=== PATIENT | male | born 1995 | race Caucasian/White ===

== ENCOUNTER 2021-03-01 14:53 | Inpatient (IN) | payer BC ==
[~2021-03-01] VITALS: Ht 167.6 cm; Wt 62.1 kg
--- NOTE | 2021-03-01 15:44 | NUR ---
RLQ ABDOMINAL PAIN W NAUSEA AND VOMITING STARTED 0600. SENT [facility] TO R/O APPENDICITIS. RATES ABDOMINAL PAIN 08/18. ABDOMNE SOFT AND NON-DISTENDED. IN ROOM AIR AND DENIES SOB. RESPIRATION REGULAR AND UNLABORED. WILL CONTINUE TO MONITOR THE PATIENT.
[2021-03-01] MEDS ORDERED: ONDANSETRON HCL/PF 4 MG/2 ML VIAL ONE (15:53)
[2021-03-01] MEDS ORDERED: ONDANSETRON HCL/PF 4 MG/2 ML VIAL IVP ONE (16:00)
[2021-03-01] MEDS ORDERED: IV NS 0.9% 1,000 ML BAG IV ONE (16:00)
[2021-03-01 16:02] LABS: BASOPHILS # (AUTO) 0.1 K/uL (0.0-0.2); BASOPHILS % (AUTO) 0.3 % (0.0-2.0); EOSINOPHILS % (AUTO) 0.1 % (0.0-6.0); HEMATOCRIT 46 % (39-51); HEMOGLOBIN 15.4 g/dL (13.5-17.5); LYMPHOCYTES # (AUTO) 0.7 K/uL (0.8-4.8); LYMPHOCYTES % (AUTO) 3.9 % (20.0-44.0); MEAN CORPUSCULAR HGB CONC 33 g/dl (31.0-36.0); MEAN CORPUSCULAR VOLUME 90 fL (80-96); MONOCYTES # (AUTO) 1.3 K/uL (0.1-1.30); MONOCYTES % (AUTO) 7.1 % (2.0-12.0); NEUTROPHILS # (AUTO) 15.8 K/uL (1.8-8.9); NEUTROPHILS % (AUTO) 88.6 % (43.0-81.0); PLATELET COUNT (AUTO) 319 K/uL (150-450); RED BLOOD CELL COUNT(AUTO) 5.14 MIL/uL (4.5-6.0); WHITE BLOOD COUNT (AUTO) 17.8 K/uL (4.3-11.0)
--- NOTE | 2021-03-01 16:02 | NUR ---
THE PATIENT IS TAKEN TO CT
[2021-03-01 16:08] LABS: ALBUMIN 4.5 g/dL (3.4-5.0); BILIRUBIN,DIRECT 0.2 mg/dL (0.0-0.2); BILIRUBIN,TOTAL 0.9 mg/dL (0.2-1.0); CALCIUM, SERUM 9.2 mg/dL (8.5-10.1); CREATININE 0.9 mg/dL (0.6-1.3); POTASSIUM 4.3 mmol/L (3.5-5.1); TOTAL PROTEIN, SERUM 8.2 g/dL (6.4-8.2)
--- NOTE | 2021-03-01 16:13 | NUR ---
THE PATIENT IS BACK FROM CT
--- NOTE | 2021-03-01 16:32 | NUR ---
URINE SENT TO LAB
[2021-03-01 16:51] LABS: BILIRUBIN,URINE Negative (NEGATIVE); COLOR,URINE YELLOW (YELLOW); LEUKOCYTE ESTERASE ,URINE Negative (NEGATIVE); NITRITE, URINE Negative (NEGATIVE); PROTEIN,URINE Trace mg/dl (NEGATIVE); UGLUCOSE Negative (NEGATIVE); UROBILINOGEN,URINE 0.2 EU/dL (0.2)
[2021-03-01 16:52] LABS: PH,URINE >8.5 (5.0-8.0)
[2021-03-01 16:53] LABS: BACTERIA,URINE Rare /HPF (None Seen); RBC,URINE NONE SEEN /HPF (0-2); SQUAMOUS EPITHELIAL CELL,UR Few /HPF (None Seen); WBC,URINE NONE SEEN /HPF (0-3)
--- NOTE | 2021-03-01 17:04 | NUR ---
THE PATIENT DENIES HAVING ANY DISTRESS AT THIS TIME. BREATHING EVEN AND UNLABORED. WILL CONTINUE TO MONITOR THE PATIENT.
--- NOTE | 2021-03-01 17:28 | NUR ---
CALLED DR. SEGOVIA LEFT MSG.
[2021-03-01] MEDS ORDERED: IV NS 0.9% 1,000 ML IV ONE (17:30)
[2021-03-01] MEDS ORDERED: PIPERACILLIN /TAZOBACTAM 3.375 G in IV D5W 50 ML IV ONE (17:30)
--- NOTE | 2021-03-01 18:10 | NUR ---
COVID SWAB DONE AND SENT TO THE LAB
[2021-03-01] MEDS ORDERED: ONDANSETRON HCL/PF 4 MG/2 ML VIAL IVP PRN (18:30)
[2021-03-01] MEDS ORDERED: IV NS 0.9% 1,000 ML IV PRN (18:30)
[2021-03-01] MEDS ORDERED: ZOLPIDEM TARTRATE 5 MG TABLET PO PRN (18:30)
[2021-03-01] MEDS ORDERED: MAG HYDROX/AL HYDROX/SIMETH 30 ML UDC PO PRN (18:30)
[2021-03-01] MEDS ORDERED: MAGNESIUM HYDROXIDE 30 ML UDC PO PRN (18:30)
[2021-03-01] MEDS ORDERED: Z GUARD REMEDY 2 OZ OINT TP PRN (18:30)
[2021-03-01] MEDS ORDERED: HYDROMORPHONE INJ 2 MG/ML DISP.SYRIN IV PRN (18:30)
[2021-03-01] MEDS ORDERED: ACETAMINOPHEN 325 MG TABLET PO PRN (18:30)
[2021-03-01] MEDS ORDERED: CEFAZOLIN 1 GM VIAL IV ONE (19:00)
--- NOTE | 2021-03-01 19:13 | NUR ---
ROOM 329
[2021-03-01] MEDS ORDERED: FENTANYL PF 250MCG/5ML AMPUL ONE (19:18)
--- NOTE | 2021-03-01 19:18 | NUR ---
REPORT GIVEN TO NURSE JUAN LUIS FOR WILLIE
[2021-03-01] MEDS ORDERED: ROCURONIUM BROMIDE 50 MG/5 ML ONE (19:19)
[2021-03-01] MEDS ORDERED: MIDAZOLAM HCL 2 MG/2ML VIAL ONE (19:19)
[2021-03-01] MEDS ORDERED: HYDROMORPHONE INJ 2 MG/ML DISP.SYRIN ONE (19:19)
--- NOTE | 2021-03-01 19:22 | NUR ---
REPORT GIVEN TO NURSE BLANCO
[2021-03-01] MEDS ORDERED: LIDOCAINE /MPF 1% VIAL 5 ML VIAL ONE (19:32)
[2021-03-01] MEDS ORDERED: LIDOCAINE HCL/PF 1% 30 ML SDV ONE (19:32)
[2021-03-01] MEDS ORDERED: BUPIVACAINE MPF 0.5% W/EPI INJ 30 ML VIAL ONE (19:32)
--- NOTE | 2021-03-01 19:36 | NUR ---
PATIENT TAKEN TO OR, VSS.
[2021-03-01] MEDS ORDERED: BACITRACIN ZINC OINT PACKET 1 EA PACKET TP ONE (20:46)
[2021-03-01 21:57] VITALS: BP 130/67
--- NOTE | 2021-03-01 22:00 | NUR ---
ACADEMIC ADVISING DIRECTOR NOTE RECEIVED PT FROM O.R. TO RM. 329-2 BROUGHT IN BY RN, CAROLYN. PT AWAKE/ DROWSY, VERBAL, A/OX4. ABLE TO VERBALIZE NEEDS. DENIES PAIN AT THIS TIME. RESPIRATIONS EVEN/UNLABORED. PT IS S/P LAP APPENDECTOMY WITH DRESSING TO ABD INCISION SITE C/D/I. IV SITE ON L-AC #18G INTACT/PATENT/FLUSHES WELL. HEALTH/MED TEACHINGS PROVIDED AND PT VERBALIZED UNDERSTANDING. BELONGINGS CHECKED AND RECORDED. PT IN NO ACUTE DISTRESS. SAFETY MEASURES IN PLACE, BED IN LOWEST LOCKED POSITION, S/R UP X2, CALL LIGHT WITHIN REACH. WILL CONT TO MONITOR.
[2021-03-01] MEDS: IV LR 1000 ML 1,000 ML IV PRN (22:52)
[2021-03-01] MEDS ORDERED: HYDROCODONE/APAP 10/325MG TABLET PO PRN (23:00)
[2021-03-01] MEDS: PIPERACILLIN /TAZOBACTAM 3.375 G in IV D5W 50 ML IV SCH (23:32)
[2021-03-02] MEDS: HYDROMORPHONE 1 MG/1 ML DISP.SYRIN IV PRN ×4 (01:12→22:01)
[2021-03-02] MEDS: PIPERACILLIN /TAZOBACTAM 3.375 G in IV D5W 50 ML IV SCH ×4 (05:46→23:15)
[2021-03-02] MEDS: IV LR 1000 ML 1,000 ML IV PRN ×2 (06:30→15:37)
--- NOTE | 2021-03-02 06:56 | NUR ---
MS RN CLOSING NOTE PT RESTING IN BED, EASILY AROUSABLE TO STIMULI. ABLE TO VERBALIZE ALL NEEDS. PT SLEPT WELL THIS SHIFT. PAIN WELL MANAGED WITH PRN DILAUDID. IV SITE: L-AC INTACT/PATENT, RUNNING LR @125ML/HR. PT IN NO ACUTE DISTRESS. SAFETY MEASURES IN PLACE, BED IN LOWEST LOCKED POSITION, S/R UPX2, CALL LIGHT WITHIN REACH.
[2021-03-02 07:15] LABS: BASOPHILS % (AUTO) 0.1 % (0.0-2.0); EOSINOPHILS % (AUTO) 0.2 % (0.0-6.0); HEMATOCRIT 39 % (39-51); HEMOGLOBIN 13.1 g/dL (13.5-17.5); LYMPHOCYTES % (AUTO) 7.8 % (20.0-44.0); MEAN CORPUSCULAR HGB CONC 33 g/dl (31.0-36.0); MEAN CORPUSCULAR VOLUME 90 fL (80-96); MONOCYTES # (AUTO) 1.2 K/uL (0.1-1.30); MONOCYTES % (AUTO) 9.6 % (2.0-12.0); NEUTROPHILS # (AUTO) 10.3 K/uL (1.8-8.9); NEUTROPHILS % (AUTO) 82.3 % (43.0-81.0); PLATELET COUNT (AUTO) 286 K/uL (150-450); RED BLOOD CELL COUNT(AUTO) 4.36 MIL/uL (4.5-6.0); WHITE BLOOD COUNT (AUTO) 12.6 K/uL (4.3-11.0)
[2021-03-02 07:28] LABS: CALCIUM, SERUM 7.7 mg/dL (8.5-10.1); MAGNESIUM 1.7 mg/dL (1.8-2.4); PHOSPHORUS 4.5 mg/dL (2.5-4.9); POTASSIUM 4.8 mmol/L (3.5-5.1)
--- NOTE | 2021-03-02 07:40 | NUR ---
MS/RN OPENING NOTES RECEIVED PATIENT ON BED AWAKE ALERT AND ORIENTED X4. PATIENT IS ON ROOM AIR. PATIENT IN NO APPARENT RESPIRATORY DISTRESS NOTED. NO COMPLAINED OF PAIN NOTED AT THIS TIME. WILL CONTINUE TO MONITOR.
[2021-03-02 08:00] VITALS: BP 127/65
[2021-03-02] MEDS ORDERED: Magnesium 1GM/D5W 100ML PREMIX 100 ML IV SCH (09:00)
--- NOTE | 2021-03-02 13:44 | NUR ---
RN NOTES PATIENT COMPLAINED OF NAUSEA AND VOMITING, 1X EMESIS. ZOFRAN 4MG IV WAS GIVEN. WILL CONTINUE TO MONITOR.
--- NOTE | 2021-03-02 14:49 | NUR ---
MS/RN NOTES DR. SEGOVIA ORDER PROTONIX 40MG IV DAILY, INSERT SHAH CATHETER AND CBC. NOTED AND CARRIED OUT.
[2021-03-02] MEDS ORDERED: PANTOPRAZOLE 40 MG VIAL IV SCH (15:00)
[2021-03-02] MEDS: PANTOPRAZOLE 40 MG VIAL IV SCH (15:04)
[2021-03-02 16:00] VITALS: BP 116/66
--- NOTE | 2021-03-02 18:39 | NUR ---
MS/RN CLOSING NOTES PATIENT IS AWAKE, ALERT AND ORIENTED X4. PATIENT IS ON ROOM AIR. PATIENT IN NO APPARENT RESPIRATORY DISTRESS NOTED. NO COMPLAINED OF PAIN NOTED AT THIS TIME. IV ACCESS AT LEFT AC #18G WITH IV FLUID OF LR 1L AT 125ML/HOUR ON AND INFUSING WELL. SEEN AND EXAMINED BY MD WITH ORDERS MADE AND CARRIED OUT. ALL DUE MEDICATIONS WAS GIVEN. SAFETY PRECAUTIONS WAS IN PLACED. BED IN LOWEST POSITION AND LOCKED. SIDERAILS UP X2. CALL LIGHT WITHIN REACH. WILL ENDORSED TO ELASTIC TAPE INSERTER FOR WILLIE.
--- NOTE | 2021-03-02 19:42 | NUR ---
Patient is awake, A&Ox4. VSS. States he feels better at this time but reports nausea and vomiting earlier in the day when attempting to get up and walk. Denies pain at this time. Will continue to monitor.
[2021-03-02 20:00] VITALS: BP 135/70
[2021-03-03] MEDS: IV LR 1000 ML 1,000 ML IV PRN ×2 (01:57→22:39)
[2021-03-03] MEDS: HYDROMORPHONE 1 MG/1 ML DISP.SYRIN IV PRN ×3 (03:38→16:31)
[2021-03-03] MEDS: PIPERACILLIN /TAZOBACTAM 3.375 G in IV D5W 50 ML IV SCH ×3 (05:39→17:02)
--- NOTE | 2021-03-03 07:18 | NUR ---
CLOSING NOTES Patient c/o severe pain x2, relieved by PRN dilaudid. Not able to drink anything PO, IV running LR mg429qg/hr. Slept well throughout night thopugh easy to wake. 1900cc output to martinez yellow clear.
[2021-03-03 07:31] LABS: BASOPHILS % (AUTO) 0.4 % (0.0-2.0); EOSINOPHILS % (AUTO) 1.1 % (0.0-6.0); HEMATOCRIT 40 % (39-51); HEMOGLOBIN 13.3 g/dL (13.5-17.5); LYMPHOCYTES # (AUTO) 1.7 K/uL (0.8-4.8); LYMPHOCYTES % (AUTO) 18.3 % (20.0-44.0); MEAN CORPUSCULAR HGB CONC 33 g/dl (31.0-36.0); MEAN CORPUSCULAR VOLUME 91 fL (80-96); MONOCYTES # (AUTO) 0.9 K/uL (0.1-1.30); NEUTROPHILS # (AUTO) 6.5 K/uL (1.8-8.9); NEUTROPHILS % (AUTO) 70.2 % (43.0-81.0); PLATELET COUNT (AUTO) 276 K/uL (150-450); RED BLOOD CELL COUNT(AUTO) 4.41 MIL/uL (4.5-6.0); WHITE BLOOD COUNT (AUTO) 9.3 K/uL (4.3-11.0)
--- NOTE | 2021-03-03 07:57 | NUR ---
RN OPENING NOTE- RECEIVED PATIENT IN BED, AWAKE ALERT AND ORIENTED X4. PATIENT IS ON ROOM AIR. PATIENT IN NO APPARENT RESPIRATORY DISTRESS. ADVANCING CLEAR LIQUID DIET. NO N&V AT PRESENT NO COMPLAINT OF PAIN NOTED AT THIS TIME. WILL CONTINUE TO MONITOR. SIDE RAILS UP , BED LOCKED, CALL LIGHT CLOSE.
[2021-03-03 08:00] VITALS: BP 130/76
[2021-03-03] MEDS: PANTOPRAZOLE 40 MG VIAL IV SCH (08:53)
--- NOTE | 2021-03-03 12:15 | NUR ---
RN NOTE- DR SEGOVIA ORDERED HSAH CATHETER DC. IV SALINE LOCK TO RT ARM LEAKING. REMOVED IV SALINE LOCK AND INSERTED NEW 24G TO RAC. SHAH CATHETER REMOVED AT THIS TIME . TOLERATED WELL.
[2021-03-03 13:27] LABS: ALBUMIN 2.9 g/dL (3.4-5.0); BILIRUBIN,TOTAL 0.8 mg/dL (0.2-1.0); CALCIUM, SERUM 8.1 mg/dL (8.5-10.1); CREATININE 1.3 mg/dL (0.6-1.3); MAGNESIUM 1.8 mg/dL (1.8-2.4); TOTAL PROTEIN, SERUM 6.3 g/dL (6.4-8.2)
[2021-03-03 15:01] LABS: BILIRUBIN,URINE NEGATIVE (NEGATIVE); COLOR,URINE YELLOW (YELLOW); LEUKOCYTE ESTERASE ,URINE SMALL (NEGATIVE); NITRITE, URINE NEGATIVE (NEGATIVE); PH,URINE 5.5 (5.0-8.0); PROTEIN,URINE NEGATIVE (NEGATIVE); UGLUCOSE NEGATIVE (NEGATIVE); UROBILINOGEN,URINE 0.2 EU/dL (0.2)
[2021-03-03 15:12] LABS: CREATININE, URINE 60.1 MG/DL (30.0-125.0); URINE TOTAL PROTEIN 17.5 mg/dL (0-11.9)
[2021-03-03 15:32] LABS: BACTERIA,URINE 1+ /HPF (None Seen); SQUAMOUS EPITHELIAL CELL,UR 0-2 /HPF (None Seen)
[2021-03-03 15:38] LABS: EOSINOPHIL,URINE RARE
--- NOTE | 2021-03-03 18:57 | NUR ---
RN CLOSING NOTE- PATIENT IN BED, AWAKE ALERT AND ORIENTED X4. PATIENT IS ON ROOM AIR. PATIENT IN NO APPARENT RESPIRATORY DISTRESS. ADVANCING CLEAR LIQUID DIET. NO N&V AT PRESENT NO COMPLAINT OF PAIN NOTED AT THIS TIME. SHAH CATHETER DC, PT VOIDING, COMFORTABLE AMBULATING IN ROOM. WILL CONTINUE TO MONITOR. SIDE RAILS UP , BED LOCKED, CALL LIGHT CLOSE.
--- NOTE | 2021-03-03 19:30 | NUR ---
RN OPENING NOTE PATIENT IN BED, AWAKE ON HIS CELL PHONE. PATIENT IS A/O X 4, ABLE TO MAKE NEEDS KNOWN. PATIENT IS S/P APPENDECTOMY. PATIENT DOES NOT HAVE ANY REPORTS OF NAUSEA AT THIS TIME AND NO PAIN. PATIENT HAS A RAC 24 G PATENT AND INTACT RUNNING LR AT 125 CC/HR. PER ARIELLA RN, PATIENT SUPPOSED TO BE ON LR AND NOT NS AND INSTRUCTED BY DR. SEGOVIA TO DC NS. SAFETY MEASURES IN PLACE: BED LOCKED AND IN LOWEST POSITION, CALL LIGHT WITHIN REACH. SIDE RAILS UP. WILL MONITOR PATIENT CLOSELY.
[2021-03-03] MEDS: IBUPROFEN 400 MG TABLET PO SCH (20:32)
[2021-03-03] MEDS: GABAPENTIN 300 MG CAPSULE PO SCH (20:32)
[2021-03-03] MEDS: ACETAMINOPHEN 325 MG TABLET PO SCH (20:33)
[2021-03-03 20:35] VITALS: BP 134/85
[2021-03-04] MEDS: PIPERACILLIN /TAZOBACTAM 3.375 G in IV D5W 50 ML IV SCH ×3 (00:32→12:15)
[2021-03-04] MEDS: ACETAMINOPHEN 325 MG TABLET PO SCH ×2 (05:17→12:15)
[2021-03-04] MEDS: GABAPENTIN 300 MG CAPSULE PO SCH ×2 (05:17→12:15)
[2021-03-04] MEDS: IBUPROFEN 400 MG TABLET PO SCH ×2 (05:17→12:15)
[2021-03-04] MEDS: IV LR 1000 ML 1,000 ML IV PRN (06:09)
--- NOTE | 2021-03-04 06:55 | NUR ---
RN CLOSING NOTE PATIENT IN BED, AWAKE. PATIENT IS A/O X 4, ABLE TO MAKE NEEDS KNOWN. PATIENT IS S/P APPENDECTOMY. PATIENT DOES NOT HAVE ANY REPORTS OF NAUSEA AT THIS TIME AND NO PAIN. PAIN MANAGED WITH TYLENOL, MOTRIN, AND GABAPENTIN. PATIENT HAS A RAC 24 G PATENT AND INTACT RUNNING LR AT 125 CC/HR. SAFETY MEASURES IN PLACE: BED LOCKED AND IN LOWEST POSITION, CALL LIGHT WITHIN REACH. SIDE RAILS UP. ALL NEEDS MET AND ATTENDED, ALL ORDERS CARRIED OUT. WILL ENDORSE TO DAY SHIFT NURSE FOR WILLIE.
--- NOTE | 2021-03-04 07:30 | NUR ---
MS RN OPENING NOTES RECEIVED PATIENT ON BED, AWAKE AND A/O X4. ON ROOM AIR TOLERATING WELL. NO SOB NOTED. NOT IN DISTRESS. WITH NO COMPLAINTS OF PAIN AT THIS TIME. WITH IV ACCESS AT LEFT AC G22, PATENT AND INTACT WITH IVF NS AT 75ML/HR. SAFETY MEASURES IN PLACE. CALL LIGHT WITHIN REACH. BED ON LOWEST AND LOCKED POSITION, SIDE RAILS UP X2. WILL CONTINUE TO MONITOR.
[2021-03-04 08:07] LABS: ALBUMIN 2.8 g/dL (3.4-5.0); BILIRUBIN,TOTAL 0.8 mg/dL (0.2-1.0); CALCIUM, SERUM 8.1 mg/dL (8.5-10.1); CREATININE 0.8 mg/dL (0.6-1.3); MAGNESIUM 1.6 mg/dL (1.8-2.4); PHOSPHORUS 2.9 mg/dL (2.5-4.9); POTASSIUM 3.7 mmol/L (3.5-5.1); TOTAL PROTEIN, SERUM 6.1 g/dL (6.4-8.2)
[2021-03-04 08:10] LABS: BASOPHILS % (AUTO) 0.6 % (0.0-2.0); EOSINOPHILS % (AUTO) 2.8 % (0.0-6.0); HEMATOCRIT 38 % (39-51); HEMOGLOBIN 12.8 g/dL (13.5-17.5); LYMPHOCYTES # (AUTO) 1.4 K/uL (0.8-4.8); LYMPHOCYTES % (AUTO) 20.4 % (20.0-44.0); MEAN CORPUSCULAR HGB CONC 34 g/dl (31.0-36.0); MEAN CORPUSCULAR VOLUME 90 fL (80-96); MONOCYTES # (AUTO) 0.8 K/uL (0.1-1.30); MONOCYTES % (AUTO) 10.9 % (2.0-12.0); NEUTROPHILS # (AUTO) 4.5 K/uL (1.8-8.9); NEUTROPHILS % (AUTO) 65.3 % (43.0-81.0); PLATELET COUNT (AUTO) 277 K/uL (150-450); RED BLOOD CELL COUNT(AUTO) 4.16 MIL/uL (4.5-6.0); WHITE BLOOD COUNT (AUTO) 6.9 K/uL (4.3-11.0)
[2021-03-04] MEDS: PANTOPRAZOLE 40 MG VIAL IV SCH (08:59)
[2021-03-04 09:11] VITALS: BP 128/81
[2021-03-04 10:14] LABS: BAND % (MANUAL) 2 % (0.0-5.0); EOSINOPHILS % (MANUAL) 2 % (0-4); LYMPHOCYTES % (MANUAL) 22 % (16-48); MONOCYTES % (MANUAL) 8 % (0-11.0); NEUTROPHILS % (MANUAL) 66 (42-76)
[2021-03-04] MEDS: Magnesium 1GM/D5W 100ML PREMIX 100 ML IV SCH ×2 (11:06→12:46)
[2021-03-04] MEDS ORDERED: IBUP-1953 PO (15:13)
[2021-03-04] MEDS ORDERED: AMOX-430 PO (15:13)
[2021-03-04] MEDS ORDERED: INFLUENZA VACCINE 2021-22 0.5 ML DISP.SYRIN IM ONE (15:30)
--- NOTE | 2021-03-04 16:25 | NUR ---
MS INFECTIOUS DISEASES PHYSICIAN NOTES PATIENT IS FOR DISCHARGE PER DOCTOR'S ORDER. FOR DISCHARGE TO HOME. PRESCRIPTION GIVEN TO PATIENT AND DISCHARGE INSTRUCTION PROVIDED. PATIENT VERBALIZED UNDERSTANDING. ALL BELONGINGS CHECKED AND ACCOUNTED FOR. IV LINE AND NAME WRIST BAND REMOVED. ACCOMPANIED PATIENT TO THE [facility] IN STABLE CONDITION AND WAS PICKED UP BY FRIEND NAMED LAZARA VIA [employer]. MD AND CHARGE NURSE ARE AWARE OF THE DISCHARGE.
[2021-03-05] MEDS ORDERED: PANTOPRAZOLE 40 MG TABLET.DR PO SCH (07:30)
[2021-03-06 07:06] LABS: *SPE ALPHA-1-GLOBULIN 0.3 g/dL (0.0-0.4); *SPE ALPHA-2-GLOBULIN 0.8 g/dL (0.4-1.0); *SPE BETA GLOBULIN 0.9 g/dL (0.7-1.3); *SPE M-SPIKE Not Observed g/dL (Not Observed)
== END 2021-03-04 16:27 | disposition home or self-care (01) | DRG 335 ==
LOC: ER 16:14 → MED 19:32
PROVIDERS: ADMIT Nurse Practitioner Acute Care; ATTEND Nurse Practitioner Acute Care
PROC: 0DTJ4ZZ Resection of Appendix, Percutaneous Endoscopic Approach (ICD-10-PCS; principal; 2021-03-01)
PROC: 0DNU4ZZ Release Omentum, Percutaneous Endoscopic Approach (ICD-10-PCS; 2021-03-01)
DX: K35.30 Acute appendicitis with localized peritonitis, without perforation or gangrene (principal); N17.0 Acute kidney failure with tubular necrosis; J45.909 Unspecified asthma, uncomplicated; K66.0 Peritoneal adhesions (postprocedural) (postinfection); E83.42 Hypomagnesemia; D72.829 Elevated white blood cell count, unspecified; Z20.822 Contact with and (suspected) exposure to COVID-19
CPT/HCPCS: 36415; 71045-TC; 80048-TC; 80053-TC; 80076-TC; 81001; 82550-TC; 82570-TC; 83690-TC; 83735-TC; 83970; 84100-TC; 84155; 84155-TC; 84165; 84300-TC; 85025-TC; 85610-TC; 86850-TC; 87040-TC; 87081-TC; 87086-TC; 88304-TC; C9113; C9803; G0378; J0690; J1170; J2250; J2405; J2543; J2704; J2765; J3010; J3475; J3490; J7030; J7050; J7060; J7120; Q2036